=== PATIENT | male | born 1995 | race Caucasian/White ===

== ENCOUNTER → 2016-03-20 | Outpatient (CLI) | payer BC ==
[~2016-03-20] MED LIST: ATV/1 PO; ENOX80IN SQ; ONDA8TAB6 PO; OPTIRAY 320 IV PRN; PROC1TAB5 PO; WARF5TAB90 PO
--- NOTE | 2016-03-20 12:21 | DIAGNOSTIC IMAGING REPORT ---
CT SCAN OF THE CHEST WITH IV CONTRAST CLINICAL HISTORY: Follow-up testicular cancer. COMPARISON STUDY: Chest CT scans dated 02/06/2016 and 12/16/2015. TECHNIQUE: Following the IV administration of 119 cc of Optiray 320, CT scan of the thorax was performed from the thoracic inlet to the upper abdomen. Images are reviewed in the axial, sagittal, and coronal planes. IV contrast was administered without complication. CT DOSE: 552.72 mGy.cm FINDINGS: Thyroid: Imaged portions of the thyroid gland are normal in size and attenuation. Thoracic aorta: The thoracic aorta is normal in caliber and demonstrates standard 3-vessel arch anatomy. No aneurysm or dissection is seen. Pulmonary vasculature: The pulmonary trunk is normal in caliber. There are no filling defects identified in the central pulmonary vessels to indicate pulmonary embolus. Note that this examination was not protocoled for evaluation of the pulmonary arteries. Heart: The heart is normal in size and configuration, and without pericardial effusion. Lungs and pleural spaces: There are numerous (less than 10) small pulmonary and pleural-based nodules. The largest nodules in the right middle lobe as seen on image #166 measuring 6 mm. A pleural-based nodule in the left lower lobe is again seen image #199. Additional small pulmonary and pleural nodules are seen in the left lower lobe on image #157, and the right middle lobe on images #186 and #189. Foci of nodular pleural thickening are seen along the left major fissure. No new pulmonary nodules are identified. These have not significantly changed in size or distribution from 12/16/2015. There are foci of patchy airspace consolidation seen at both lung bases, left greater than right. A small focus is also seen in the left upper lobe. No pleural effusion is identified. Mediastinum: There is no mediastinal lymphadenopathy. Alison: Clear. Axillae: There is no axillary lymphadenopathy. Upper abdomen: Partially visualized upper abdominal viscera is within normal limits. Skeletal structures: No lytic or blastic bony lesions are seen. There is a mild superior endplate compression deformity of T3. IMPRESSION: 1. There is no convincing evidence of intrathoracic metastatic disease. 2. There are numerous (less than 10) indeterminant but low suspicion pulmonary and pleural-based nodules measuring up to 6 mm. These are unchanged in both size and distribution from 12/16/2015. 3. There are patchy foci of bibasilar airspace consolidation, left greater than right. This is new from previous and the appearance suggests an infectious or inflammatory pneumonitis. Attention at follow-up is recommended. 4. No pleural effusion is seen. 5. No intrathoracic adenopathy is identified. Electronically signed by: Nando Black M.D. 03/20/2016 12:19 PM Dictated Date/Time: 03/20/2016 12:10 PM
--- NOTE | 2016-03-20 12:36 | DIAGNOSTIC IMAGING REPORT ---
CT SCAN OF THE ABDOMEN AND PELVIS WITH IV CONTRAST CLINICAL HISTORY: Testicular cancer follow-up. COMPARISON STUDY: Abdominal CT dated 12/16/2015. TECHNIQUE: Following the IV administration of 119 cc of Optiray 320, CT scan of the abdomen and pelvis is performed from the lung bases to the proximal femora. Images are reviewed in the axial, sagittal, and coronal planes. IV contrast was administered without complication. Automated dose control exposure was utilized. CT DOSE: Reported separately under the concurrently performed CT scan of the chest. FINDINGS: Lung bases: The heart is normal in size and without pericardial effusion. Patchy airspace consolidation is present at both lung bases, left greater than right. No pleural effusion is identified. Liver: The contrast-enhanced liver is normal in size, contour, and attenuation. There is no intrahepatic biliary ductal dilatation. The hepatic veins and portal veins are patent. Gallbladder: Unremarkable. Spleen: Normal in size and attenuation. Pancreas: Unremarkable. Adrenal glands: Unremarkable. Kidneys: The contrast enhanced kidneys are normal in size and without hydronephrosis. The kidneys enhance symmetrically. Abdominal vasculature: The abdominal aorta is normal in course and caliber. Bowel: The small bowel and colon are normal in course and caliber. There is moderate colonic fecal retention. The appendix is well-visualized and normal. Peritoneum: There is no intraperitoneal free air or abdominal ascites. There is a small fat-containing umbilical hernia. Lymphadenopathy: The pathologically enlarged retroperitoneal lymph node seen on 12/16/2015 has almost completely resolved. A small residual periaortic node at this site is seen on image #159 and measures 0.7 x 1.0 cm (previously measured up to 2.1 cm). No progressive lymphadenopathy is seen. Pelvic viscera: The bladder, prostate, and seminal vesicles are normal as visualized. Findings suggest previous left-sided orchiectomy. Skeletal structures: No lytic or blastic lesions are seen. Disc bulge is suggested at L5-S1. IMPRESSION: 1. Near has been complete resolution of the pathologically enlarged left periaortic lymph node as compared to 12/16/2015. See above. 2. There is no evidence of progressive metastatic disease in the abdomen or pelvis. 3. There is patchy airspace consolidation at both lung bases, left greater than right. This likely represents an infectious or inflammatory pneumonitis. See report of chest CT performed concurrently for detailed intrathoracic findings. Electronically signed by: Nando Black M.D. 03/20/2016 12:34 PM Dictated Date/Time: 03/20/2016 12:27 PM
== END | disposition home or self-care (01) ==
LOC: C.CTS 11:11
PROVIDERS: ATTEND Internal Medicine Hematology & Oncology
DX: C62.12 Malignant neoplasm of descended left testis (principal); R91.8 Other nonspecific abnormal finding of lung field

== ENCOUNTER → 2016-08-22 | Outpatient (CLI) | payer BC ==
[~2016-08-22] MED LIST changes: -OPTIRAY 320 IV PRN
[2016-08-22 16:38] LABS: ALT/SGPT 99 U/L (12-78); BLOOD UREA NITROGEN 17 mg/dl (7-18); BUN/CREATININE RATIO 20.1 (10-20); CALCIUM 8.5 mg/dl (8.5-10.1); CARBON DIOXIDE 27 mmol/L (21-32); CHLORIDE 106 mmol/L (98-107); CREATININE 0.86 mg/dl (0.60-1.40); GLUCOSE 82 mg/dl (70-99); POTASSIUM 4.1 mmol/L (3.5-5.1); SODIUM 141 mmol/L (136-145)
[2016-08-22 16:40] LABS: ALB/GLOB RATIO 1.4 (0.9-2); ALKALINE PHOSPHATASE 69 U/L (45-117); AST/SGOT 286 U/L (15-37)
== END | disposition home or self-care (01) ==
LOC: C.LAB 12:54
PROVIDERS: ATTEND Internal Medicine Medical Oncology
DX: C62.90 Malignant neoplasm of unspecified testis, unspecified whether descended or undescended (principal)